=== PATIENT | male | born 1990 | race Two or more races ===

== ENCOUNTER 2019-07-11 02:52 | Emergency (ER) | payer MEDICAID ==
[~2019-07-11] VITALS: Ht 175.3 cm; Wt 75.0 kg
[2019-07-11] MEDS ORDERED: SERT50TA12 PO (03:03)
[2019-07-11] MEDS ORDERED: DiphenhydrAMINE HCL 25 MG CAPSULE PO ONE (03:45)
[2019-07-11] MEDS ORDERED: ONDANSETRON HCL 4 MG/2 ML VIAL IVP ONE (03:45)
[2019-07-11] MEDS ORDERED: METOCLOPRAMIDE HCL 5 MG/ML 2 ML VIAL IVP ONE (03:45)
[2019-07-11] MEDS ORDERED: SODIUM CHLORIDE 0.9% 1,000 ML IV ONE (04:00)
[2019-07-11 04:18] LABS: BASOPHILS % (AUTO) 0.9 % (0.0-2.0); HEMATOCRIT 42.8 % (41-53); HEMOGLOBIN 14.8 g/dL (13.5-17.5); LYMPHOCYTES # (AUTO) 1.9 K/uL (1.0-4.8); LYMPHOCYTES % (AUTO) 38.3 % (22.0-44.0); MEAN CORPUSCULAR HEMOGLOBIN 31.7 pg (26.0-34.0); MEAN CORPUSCULAR HGB CONC 34.5 G/dL (31.0-37.0); MEAN CORPUSCULAR VOLUME 92 fL (80-100); MONOCYTES # (AUTO) 0.3 K/uL (0.1-1.0); MONOCYTES % (AUTO) 6.5 % (2.0-9.0); NEUTROPHILS # (AUTO) 2.5 K/uL (1.8-7.7); NEUTROPHILS % (AUTO) 52.3 % (40.0-70.0); PLATELET COUNT (AUTO) 211 K/uL (150-450); RED BLOOD CELL COUNT(AUTO) 4.65 MIL/uL (4.50-5.90); RED CELL DISTRIBUTION WIDTH 12.9 % (11.5-14.5)
[2019-07-11 04:19] LABS: ANION GAP 12 mmol/L (8-16); CALCIUM, TOTAL 8.2 mg/dL (8.8-10.5); CARBON DIOXIDE 26 mmol/L (22-29); CHLORIDE 103 mmol/L (98-107); CREATININE 0.92 mg/dL (0.60-1.30); GLOMERULAR FILTR. RATE CALC > 60 mL/min (>60); GLUCOSE,RANDOM 109 mg/dL (70-110); POTASSIUM 3.4 mmol/L (3.5-5.1); SODIUM SERUM 141 mmol/L (136-145); UREA NITROGEN, BLOOD 12 mg/dL (7-18)
[2019-07-11 04:25] LABS: ALANINE AMINOTRANSFERASE 18 U/L (12-78); ALKALINE PHOSPHATASE 50 U/L (46-116); ASPARTATE AMINOTRANSFERASE 18 U/L (15-37); BILIRUBIN,TOTAL 0.8 mg/dL (0.1-1.0); TOTAL PROTEIN, SERUM 7.2 g/dL (6.4-8.2)
[2019-07-11] MEDS ORDERED: MAGNESIUM SULFATE 2 GM/WATER 50 ML IV ONE (04:30)
[2019-07-11] MEDS ORDERED: KETOROLAC TROMETHAMINE 30 MG/ML VIAL IVP ONE (04:30)
[2019-07-11 04:35] VITALS: BP 144/82
== END 2019-07-11 05:15 | disposition home or self-care (01) ==
LOC: EMS 02:54
DX: R51 Headache (principal); R11.2 Nausea with vomiting, unspecified; F43.10 Post-traumatic stress disorder, unspecified; F17.210 Nicotine dependence, cigarettes, uncomplicated; Z91.030 Bee allergy status
CPT/HCPCS: 36415; 70450; 80053; 85025; 96361; 96374; 96375; 99284; J1885; J2405; J2765; J7030; J3475

== ENCOUNTER 2022-08-19 11:27 | Emergency (ER) | payer MEDICAID ==
[~2022-08-19] VITALS: Ht 170.2 cm; Wt 65.9 kg
[~2022-08-19 11:27] MED LIST: SERT-158 PO
[2022-08-19] MEDS ORDERED: IBUP-1554 PO (14:33)
[2022-08-19 15:13] VITALS: BP 120/66
== END 2022-08-19 15:45 | disposition home or self-care (01) ==
LOC: EMS 11:48
DX: S62.636A Displaced fracture of distal phalanx of right little finger, initial encounter for closed fracture (principal); M20.011 Mallet finger of right finger(s); F32.A Depression, unspecified; F20.9 Schizophrenia, unspecified; Z91.030 Bee allergy status; X58.XXXA Exposure to other specified factors, initial encounter; Y93.89 Activity, other specified; Y92.89 Other specified places as the place of occurrence of the external cause; Y99.8 Other external cause status
CPT/HCPCS: 99283

== ENCOUNTER 2022-09-21 16:44 | Emergency (ER) | payer MEDICAID ==
[~2022-09-21] VITALS: Ht 175.3 cm; Wt 72.7 kg
[~2022-09-21 16:44] MED LIST changes: +IBUP-1554 PO
[2022-09-21] MEDS ORDERED: DIVA-85 PO (17:19)
[2022-09-21] MEDS ORDERED: BUSP5TAB20 PO (17:19)
[2022-09-21 17:30] VITALS: BP 133/79
[2022-09-21] MEDS ORDERED: ACETAMINOPHEN 500 MG TABLET PO ONE (17:45)
[2022-09-21] MEDS ORDERED: DOXYCYCLINE HYCLATE 100 MG TABLET PO ONE (17:45)
[2022-09-21] MEDS ORDERED: BACITRACIN 0.9 GM PACKET OINTMENT TP ONE (17:45)
[2022-09-21] MEDS ORDERED: DOXY-354 PO (18:13)
== END 2022-09-21 18:23 | disposition home or self-care (01) ==
LOC: EMS 17:05
DX: L03.115 Cellulitis of right lower limb (principal); S91.301A Unspecified open wound, right foot, initial encounter; F32.A Depression, unspecified; F20.9 Schizophrenia, unspecified; Z91.030 Bee allergy status; X58.XXXA Exposure to other specified factors, initial encounter; Y93.89 Activity, other specified; Y92.89 Other specified places as the place of occurrence of the external cause; Y99.8 Other external cause status
CPT/HCPCS: 99283

== ENCOUNTER 2022-09-28 10:32 | Emergency (ER) | payer MEDICAID ==
[~2022-09-28] VITALS: Ht 170.2 cm; Wt 79.1 kg
[~2022-09-28 10:32] MED LIST changes: +BUSP5TAB20 PO; +DIVA-85 PO; +DOXY-354 PO; -IBUP-1554 PO; -SERT-158 PO
[2022-09-28] MEDS ORDERED: OLAN2.5T29 PO (10:38)
[2022-09-28] MEDS ORDERED: NALT50TA6 PO (10:38)
[2022-09-28] MEDS ORDERED: VITAMIN D PO (10:39)
[2022-09-28 10:45] LABS: COVID AG,FIA SOURCE NASAL SWAB
[2022-09-28] MEDS ORDERED: GuaiFENesin/D-METHORPHAN [SUGAR-FREE] 200-20MG/10 ML SYRUP UDCUP PO ONE (11:00)
[2022-09-28] MEDS ORDERED: IBUPROFEN 600 MG TABLET PO ONE (11:00)
[2022-09-28] MEDS ORDERED: ACETAMINOPHEN 500 MG TABLET PO ONE (11:00)
[2022-09-28 11:33] LABS: INFLUENZA TYPE A NEGATIVE FOR TYPE A (NEGATIVE); INFLUENZA TYPE B NEGATIVE FOR TYPE B (NEGATIVE)
[2022-09-28 11:40] VITALS: BP 126/66
[2022-09-28] MEDS ORDERED: GUAIFDM PO (11:41)
[2022-09-28] MEDS ORDERED: IBUP-1554 PO (11:41)
[2022-09-28] MEDS ORDERED: ACET-66 PO (11:41)
== END 2022-09-28 12:24 | disposition home or self-care (01) ==
LOC: EMS 10:36
DX: J06.9 Acute upper respiratory infection, unspecified (principal); F32.A Depression, unspecified; F20.9 Schizophrenia, unspecified; Z91.030 Bee allergy status; Z20.822 Contact with and (suspected) exposure to COVID-19
CPT/HCPCS: 87804; 99284; Z7502; Z7610

== ENCOUNTER 2023-04-22 22:15 | Emergency (ER) | payer MEDICAID ==
[~2023-04-22] VITALS: Ht 170.2 cm; Wt 77.3 kg
[~2023-04-22 22:15] MED LIST changes: +ACET-66 PO; -DOXY-354 PO; +GUAIFDM PO; +IBUP-1554 PO; +NALT50TA6 PO; +OLAN2.5T29 PO; +VITAMIN D PO
[2023-04-22 22:18] VITALS: BP 116/68; PULSE 96; RESP 14; TEMP 98.5
[2023-04-22] MEDS ORDERED: DiphenhydrAMINE HCL 50 MG CAPSULE PO ONE (23:15)
[2023-04-22] MEDS ORDERED: KETOROLAC TROMETHAMINE 30 MG/ML VIAL IM ONE (23:15)
[2023-04-22] MEDS ORDERED: KETOROLAC TROMETHAMINE 60 MG/2 ML VIAL IM ONE (23:30)
== END 2023-04-22 23:40 | disposition home or self-care (01) ==
LOC: EMS 22:16
DX: G44.209 Tension-type headache, unspecified, not intractable (principal); F32.A Depression, unspecified; F20.9 Schizophrenia, unspecified; Z91.030 Bee allergy status
CPT/HCPCS: 99283; 96372; J1885

== ENCOUNTER 2023-10-26 02:36 | Emergency (ER) | payer MEDICAID ==
[~2023-10-26] VITALS: Ht 170.2 cm; Wt 62.7 kg
[~2023-10-26 02:36] MED LIST changes: +NALT50TA33 PO; -NALT50TA6 PO
[2023-10-26 03:00] VITALS: BP 133/73; PULSE 135; RESP 18; TEMP 98
[2023-10-26 03:29] LABS: COVID AG,FIA SOURCE NASAL SWAB
[2023-10-26 03:40] LABS: APPEARANCE,URINE CLEAR (CLEAR); BILIRUBIN,URINE NEGATIVE (NEGATIVE); COLOR,URINE YELLOW (YELLOW); GLUCOSE, URINE (UA) TRACE mg/dL (NEGATIVE); KETONES,URINE NEGATIVE (NEGATIVE); LEUKOCYTE ESTERASE ,URINE NEGATIVE (NEGATIVE); NITRATE,URINE NEGATIVE (NEGATIVE); OCCULT BLOOD,URINE NEGATIVE (NEGATIVE); PH,URINE 5.5 (5.0-8.0); PH,URINE DRUG SCREEN 5.5 (5.0-8.0); PROTEIN,URINE 30-70 mg/dL (NEGATIVE); SPECIFIC GRAVITIY, URINE 1.036 (1.003-1.030); UROBILINOGEN,URINE <=1.0 mg/dL (<=1.0)
[2023-10-26 03:44] LABS: SARS-COV2 (COVID) ANTIGEN,FIA Negative (Negative)
[2023-10-26 03:45] LABS: ALCOHOL, URINE DRUG SCREEN NEGATIVE (NEGATIVE); AMPHET/METH SCREEN,URINE POSITIVE (NEGATIVE); BARBITURATE SCREEN, URINE NEGATIVE (NEGATIVE); BENZODIAZEPINES SCREEN,URINE NEGATIVE (NEGATIVE); CANNABINOID SCREEN,URINE POSITIVE (NEGATIVE); COCAINE SCREEN,URINE NEGATIVE (NEGATIVE); METHADONE SCREEN, URINE NEGATIVE (NEGATIVE); OPIATE SCREEN,URINE NEGATIVE (NEGATIVE); PHENCYCLIDINE SCREEN,URINE NEGATIVE (NEGATIVE)
[2023-10-26] MEDS ORDERED: CHOL25TA4 PO (11:25)
== END 2023-10-26 04:56 | disposition short-term general hospital (02) ==
LOC: EMS 02:36
DX: F25.9 Schizoaffective disorder, unspecified (principal); F32.A Depression, unspecified; F12.90 Cannabis use, unspecified, uncomplicated; F15.90 Other stimulant use, unspecified, uncomplicated; Z91.040 Latex allergy status; Z20.822 Contact with and (suspected) exposure to COVID-19
CPT/HCPCS: 80307; 81003; 99285

== ENCOUNTER 2024-09-05 15:10 | Emergency (ER) | payer MEDICAID ==
[~2024-09-05] VITALS: Ht 172.7 cm; Wt 68.2 kg
[~2024-09-05 15:10] MED LIST changes: +CHOL25TA4 PO; +DIPH-1243 PO; -OLAN2.5T29 PO; +OLAN2.5T78 PO; +PRED-554 PO; -VITAMIN D PO
[2024-09-05 15:14] VITALS: BP 143/86; PULSE 94; RESP 16; O2SAT 100
[2024-09-05] MEDS: ONDANSETRON HCL 4 MG/2 ML VIAL IM ONE (15:32)
[2024-09-05] MEDS ORDERED: ONDA-104 PO (15:37)
[2024-09-05] MEDS ORDERED: DIPH-1130 PO (15:37)
[2024-09-05] MEDS: DIPHENOXYLATE/ATROP 2.5-0.025 MG TABLET PO ONE (15:51)
[2024-09-05] MEDS: ACETAMINOPHEN 500 MG TABLET PO ONE (15:52)
[2024-09-05 16:12] LABS: COVID AG,FIA SOURCE NASAL SWAB
[2024-09-05 16:41] LABS: INFLUENZA TYPE A NEGATIVE FOR TYPE A (NEGATIVE); INFLUENZA TYPE B NEGATIVE FOR TYPE B (NEGATIVE); SARS-COV2 (COVID) ANTIGEN,FIA Negative (Negative)
== END 2024-09-05 16:01 | disposition home or self-care (01) ==
LOC: EMS 15:10
DX: K52.9 Noninfective gastroenteritis and colitis, unspecified (principal); Z91.030 Bee allergy status; Z20.822 Contact with and (suspected) exposure to COVID-19
CPT/HCPCS: 99283; 87426; 87804; 96372; J2405

== ENCOUNTER 2024-09-16 12:46 | Emergency (ER) | payer MEDICAID ==
[~2024-09-16] VITALS: Ht 170.2 cm; Wt 75.0 kg
[~2024-09-16 12:46] MED LIST changes: +DIPH-1130 PO; -DIPH-1243 PO; -GUAIFDM PO; -IBUP-1554 PO; +ONDA-104 PO; -PRED-554 PO
[2024-09-16 12:49] VITALS: BP 102/65; PULSE 88; RESP 18; TEMP 98.4; O2SAT 99
[2024-09-16 13:21] LABS: COVID AG,FIA SOURCE NASAL SWAB
[2024-09-16 14:18] LABS: SARS-COV2 (COVID) ANTIGEN,FIA Negative (Negative)
[2024-09-16 14:19] LABS: INFLUENZA TYPE A NEGATIVE FOR TYPE A (NEGATIVE); INFLUENZA TYPE B NEGATIVE FOR TYPE B (NEGATIVE)
== END 2024-09-16 13:59 | disposition home or self-care (01) ==
LOC: EMS 12:46
DX: R51.9 Headache, unspecified (principal); R19.7 Diarrhea, unspecified; R11.2 Nausea with vomiting, unspecified; B34.9 Viral infection, unspecified; Z51.81 Encounter for therapeutic drug level monitoring; Z91.030 Bee allergy status; Z91.011 Allergy to milk products; Z20.822 Contact with and (suspected) exposure to COVID-19
CPT/HCPCS: 87804; 99283